=== PATIENT | female | born 1970 | race Caucasian/White ===

== ENCOUNTER 2022-09-08 16:46 | Emergency (ER) | payer BC, OTHER ==
[~2022-09-08] VITALS: Ht 157.5 cm; Wt 99.2 kg
[2022-09-08] VITALS (9 sets, daily range): BP systolic 120–147; BP diastolic 64–85
[2022-09-08] MEDS ORDERED: NAPROXEN500 MG PO (18:30)
== END 2022-09-08 19:10 | disposition home or self-care (01) | DRG 556 ==
LOC: ED 16:46
PROC: 2W23X4Z Dressing of Abdominal Wall using Bandage (ICD-10-PCS; principal; 2022-09-08)
DX: M25.511 Pain in right shoulder (principal); T21.22XA Burn of second degree of abdominal wall, initial encounter; T31.0 Burns involving less than 10% of body surface; X12.XXXA Contact with other hot fluids, initial encounter